=== PATIENT | female | born 1980 | race Caucasian/White ===

== ENCOUNTER 2016-04-24 16:00 | Observation (INO) | payer BC, MEDICAID ==
[~2016-04-24] VITALS: Ht 162.6 cm
--- NOTE | ~2016-04-24 | CON ---
PATIENT'S NAME: DYLAN JAVIER [facility] AGE: 35 Y [address] ROOM: [place] [address] LOCATION: [facility] ADMIT DATE: 04/24/2016 Consultation DISCHARGE DATE: FAMILY PHYSICIAN: Jani Wang MD ATTENDING PHYSICIAN: Jani Wang DATE OF CONSULTATION: 04/24/2016 REASON FOR CONSULTATION: contractions. HISTORY OF PRESENT ILLNESS: The patient is a 35-year-old, -0-0-2, with intrauterine at 31 weeks 3 days, who presented to Dr. Wang today complaining of contractions and back pain. Her was complicated by gestational diabetes, treated with insulin. The patient, given her complaints, was sent over to Labor and Delivery for evaluation. She was found to be 3 cm dilated externally and 1 cm internally, thick and high. She was checked by the nurse again later and found to be again 3 cm externally, 1 cm internally, thick but maybe a little bit , thus my services were requested. PAST MEDICAL HISTORY: None. PAST SURGICAL HISTORY: 1. Appendectomy. 2. Abscess removal of right axilla. OBSTETRICS AND GYNECOLOGY HISTORY: The patient is a -0-0-2. History of 2 term uncomplicated vaginal deliveries, those pregnancies were not complicated by any medical problems. FAMILY HISTORY: Noncontributory. SOCIAL HISTORY: Denies tobacco, alcohol, or drug use. Does have a history of smoking in the past. MEDICATIONS: 1. Insulin. 2. vitamins. 3. Ferrous sulfate. ALLERGIES: PATIENT'S NAME: DYLAN JAVIER [facility] AGE: 35 Y [address] ROOM: [place] [id number] LOCATION: [facility] ADMIT DATE: 04/24/2016 Consultation DISCHARGE DATE: FAMILY PHYSICIAN: Jani Wang MD ATTENDING PHYSICIAN: Jani Wang VANCOMYCIN. REVIEW OF SYSTEMS: Negative except as noted in the HPI. PHYSICAL EXAMINATION: VITAL SIGNS: Blood pressure 115/57, heart rate 67, temperature 98.3, and respiration rate 12. GENERAL: She is alert and oriented, in no acute distress. ABDOMEN: Soft, gravid, nontender. STERILE VAGINAL EXAM: The patient is 3 cm externally but 1 cm internally, thick and high. heart tones, baseline 130 and moderate variability. Positive accelerations, no decelerations. TOCO, contractions every 4 minutes with times of irritability in between and then other times no contractions. ASSESSMENT: The patient is a 35-year-old, -0-0-2, with intrauterine at 31 weeks 3 days with contractions. RECOMMENDATIONS: I recommend that the patient either stay overnight and be reevaluated in the morning; however, given that her cervix has not changed throughout the course of the evening, she would be a candidate to go home. She has a multiparous feeling cervix; however, it is still thick and internally only 1 cm dilated. If the patient dilates up to 2 cm and becomes 80% effaced, then I would recommend tocolysis and Celestone. MD MAYUR RAMIRES/andrey /[id number] d: 04/25/16 0017 t: 04/30/16 1117, CONSULTATION REPORT
--- NOTE | ~2016-04-24 | HP ---
PATIENT'S NAME: DYLAN JAVIER [facility] AGE: 35 Y [address] ROOM: [place] [address] LOCATION: [facility] ADMIT DATE: 04/24/2016 History & Physical DISCHARGE DATE: 04/25/2016 FAMILY PHYSICIAN: Deepthi Wang MD ATTENDING PHYSICIAN: Deepthi Wang DATE OF SERVICE: CHIEF COMPLAINT: Contractions. HISTORY OF PRESENT ILLNESS: The patient is a 35-year-old, -0-0-2 with intrauterine at 31 weeks and 3 days with a history of gestational diabetes and gestational anemia, who presented to clinic with contractions. The patient was brought over to Labor and Delivery for evaluation and placed on the monitor and was noted to have contractions every 2 to 3 minutes. The patient's cervix originally was 1 cm inner os, 3 cm outer os. The patient was given a 1-liter bolus and then IV fluid hydration. The patient denies any chest pain, shortness of breath, fevers, chills, abdominal pain, or any urinary symptoms. PAST MEDICAL HISTORY: 1. Gestational diabetes. 2. Anemia. PAST SURGICAL HISTORY: Appendectomy. SOCIAL HISTORY: The patient denies any current tobacco use, but did use to smoke. FAMILY HISTORY: Significant for cardiovascular disease in maternal grandfather and maternal grandmother, hepatitis C in mother, and thyroid disorder in maternal grandfather. MEDICATIONS: 1. vitamin. 2. Insulin. 3. Iron tablet. ALLERGIES: NO KNOWN MEDICAL ALLERGIES. REVIEW OF SYSTEMS: PATIENT'S NAME: DYLAN JAVIER [facility] AGE: 35 Y [address] ROOM: [place] [address] LOCATION: [facility] ADMIT DATE: 04/24/2016 History & Physical DISCHARGE DATE: 04/25/2016 FAMILY PHYSICIAN: Deepthi Wang MD ATTENDING PHYSICIAN: Deepthi Wang A complete review of systems obtained and pertinent positives and negatives as mentioned in the HPI. OBJECTIVE: VITAL SIGNS: Stable. GENERAL: The patient is alert and oriented. Appears little bit distressed when having contractions. HEENT: Head: Normocephalic, atraumatic. Eyes: Conjunctivae clear. No scleral icterus. Mouth and oropharynx: Mucosa moist and patent. No lesion or exudates. NECK: Supple. No lymphadenopathy or thyromegaly. HEART: Regular rate and rhythm. No rubs, murmurs, or gallops. LUNGS: Clear to auscultation bilaterally. ABDOMEN: Gravid. Tocometer shows contractions every 2 or 3 minutes. heart tones 140s. Cervix, 3 cm outer and 1 cm inner os. EXTREMITIES: No cyanosis, clubbing, or edema. VASCULAR: Pulses 2+ and equal bilaterally. SKIN: No rash or lesions. LYMPHATICS: No lymphadenopathy. NEUROLOGIC: Cranial nerves 2 through 12 grossly intact. LABORATORY DATA: Blood glucose in a.m. was 86. ASSESSMENT: 1. Contractions. 2. Gestational diabetes. 3. Gestational anemia. 4. -0-0-2 with intrauterine at 31 weeks and 3 days. PLAN: OFFENSIVE COORDINATOR was consulted and also will follow and we did fluid hydration. The patient's cervix did not change and her contractions spaced out to irritability. The patient's blood sugars remained controlled during her hospital stay. The following morning, we discharged the patient. We will have her follow up in 2 days in clinic or sooner, if any concerns. Labor precautions were given. The patient is to continue to follow up with diabetes education as directed. If the patient has any concerns prior, she is to contact clinic immediately. DEEPTHI WANG MD PATIENT'S NAME: DYLAN JAVIER [facility] AGE: 35 Y [address] ROOM: [place] [address] LOCATION: [facility] ADMIT DATE: 04/24/2016 History & Physical DISCHARGE DATE: 04/25/2016 FAMILY PHYSICIAN: Deepthi Wang MD ATTENDING PHYSICIAN: Deepthi Wang/andrey /[id number] D: 944 T: HISTORY & PHYSICAL
[2016-04-24] MEDS ORDERED: PRENATAL 1+1)(P1 TAB PO (18:30)
[2016-04-24] MEDS ORDERED: FEOSOL325 MG PO (18:32)
[2016-04-24] MEDS ORDERED: HUMULIN N100 UNIT/2 SUB-Q ×2 (18:57→19:39)
== END 2016-04-25 09:40 | disposition disaster alternative care site (69) ==
LOC: GOBS 16:00
PROVIDERS: ADMIT Family Medicine
DX: O47.03 False labor before 37 completed weeks of gestation, third trimester (principal); O24.419 Gestational diabetes mellitus in pregnancy, unspecified control; O99.013 Anemia complicating pregnancy, third trimester; Z90.49 Acquired absence of other specified parts of digestive tract; Z3A.31 31 weeks gestation of pregnancy; Z79.4 Long term (current) use of insulin; Z79.899 Other long term (current) drug therapy; Z88.1 Allergy status to other antibiotic agents
CPT/HCPCS: G0463; J7120

== ENCOUNTER 2016-05-14 21:16 | Observation (INO) | payer MEDICAID ==
[~2016-05-14] VITALS: Ht 165.1 cm; Wt 108.1 kg
[~2016-05-14 21:16] MED LIST: FEOSOL325 MG PO; HUMULIN N100 UNIT/2 SUB-Q; PRENATAL 1+1)(P1 TAB PO
[2016-05-14] MEDS ORDERED: HUMULIN N100 UNIT/2 SUB-Q (21:53)
[2016-05-14 23:31] LABS: BILIRUBIN URINE NEGATIVE (NEGATIVE); BLOOD URINE NEGATIVE /UL (NEGATIVE); COLOR URINE YELLOW (YELLOW); GLUCOSE URINE 100 mg/dL (NEGATIVE); KETONE URINE 15 mg/dL (NEGATIVE); LEUKOCYTES URINE NEGATIVE /UL (NEGATIVE); NITRITE URINE NEGATIVE (NEGATIVE); PROTEIN URINE 15 mg/dL (NEGATIVE); SPEC GRAVITY URINE 1.025 (1.003-1.035); TURBIDITY URINE CLEAR (CLEAR); UROBILINOGEN URINE NORMAL (NORMAL)
[2016-05-14 23:42] LABS: BACTERIA URINE NEGATIVE (NEGATIVE); EPITHELIAL URINE 0-2 #/HPF (NEGATIVE); MUCUS URINE 1+ (NEGATIVE); RBC URINE NEGATIVE #/HPF (NEGATIVE); WBC URINE 0-2 #/HPF (NEGATIVE)
== END 2016-05-15 02:07 | disposition disaster alternative care site (69) ==
LOC: GOBS 21:16
PROVIDERS: ADMIT Family Medicine
DX: O60.03 Preterm labor without delivery, third trimester (principal); Z3A.34 34 weeks gestation of pregnancy; Z90.49 Acquired absence of other specified parts of digestive tract; Z79.899 Other long term (current) drug therapy; Z87.891 Personal history of nicotine dependence
CPT/HCPCS: G0463

== ENCOUNTER 2016-06-16 18:31 | Inpatient (IN) | payer MEDICAID ==
[~2016-06-16] VITALS: Ht 165.1 cm; Wt 112.9 kg
--- NOTE | ~2016-06-16 | OR ---
PATIENT'S NAME: DYLAN JAVIER [facility] AGE: 35 Y [address] ROOM: [place] [address] LOCATION: [facility] ADMIT DATE: 06/17/2016 OR/Procedure Report DISCHARGE DATE: FAMILY PHYSICIAN: Jani Wang MD ATTENDING PHYSICIAN: Jani Wang SURGEON: Jani Wang MD OSTRICH FARMER: DATE OF PROCEDURE: 06/17/2016 PREOPERATIVE DIAGNOSES: 1. Term-intrauterine 39 weeks and 1 day. 2. Gestational diabetes, insulin dependent. 3. GBS positive. 4. History of chlamydia treated during with test for cure that was negative. POSTOPERATIVE DIAGNOSIS: 1. Term-intrauterine 39 weeks and 1 day. 2. Gestational diabetes, insulin dependent. 3. GBS positive. 4. History of Chlamydia treated during with test for cure that was negative. PROCEDURE PERFORMED: Spontaneous vaginal delivery. ANESTHESIA: Epidural. ESTIMATED BLOOD LOSS: 200 mL. INDICATIONS: The patient is a 35-year-old, -0-0-2, who presents Labor and Delivery for induction of labor. Her has been complicated by Chlamydia infection that was treated and tested for care that was negative, GBS positive, and also measuring for dates and being insulin-dependent gestational diabetic. The patient had a hemoglobin A1c performed earlier this week that was 5.5. The patient was augmented with Cytotec gel and then progressed through labor and did space out, so we started Pitocin and then was found to be complete. FINDINGS: Female infant, score of 8 and 9. Weight 6 pounds 9 ounces. Cord blood was drawn. Intact placenta with 3-vessel cord. No cervical or vaginal lacerations noted and small midline mild 1st degree perineal laceration noted. DESCRIPTION OF PROCEDURE: The patient had a sterile drape placed under her buttocks. head was delivered with expulsive effort over an intact PATIENT'S NAME: DYLAN JAVIER [facility] AGE: 35 Y [address] ROOM: [place] [address] LOCATION: [facility] ADMIT DATE: 06/17/2016 OR/Procedure Report DISCHARGE DATE: FAMILY PHYSICIAN: Jani Wang MD ATTENDING PHYSICIAN: Jani Wang perineum. The was placed on the chest of the mother and the infant was bulb suctioned. Cord was clamped and cut. The infant was handed to the waiting nurse. Cord blood was drawn. The placenta was delivered spontaneously, intact three-vessel cord. The cervix and vagina were inspected and noted to be free of lacerations. There was very mild first-degree midline perineal laceration that was not bleeding. COMPLICATIONS: None. CONDITION: Mother stable in room. PATHOLOGY: None. MD DEVORA CALERO/andrey /[id number] d: 06/17/16 1105 t: 06/25/16 1331, OPERATIVE SUMMARY
[2016-06-16 20:15] LABS: BASOPHIL % 0.3 %; EOSINOPHIL # 0.1 K/uL (0.0-0.5); EOSINOPHIL % 0.6 %; HEMATOCRIT 36.9 % (33.0-46.0); HEMOGLOBIN 12.6 g/dL (11.0-15.0); IMMATURE GRANULOCYTE # 0.2 K/uL (0.0-0.3); IMMATURE GRANULOCYTE % 1.3 %; LYMPHOCYTE # 2.9 K/uL (0.8-4.0); LYMPHOCYTE % 24.8 %; MCH 30.6 pg (27.0-34.0); MCHC 34.1 gm/dL (32.0-36.5); MCV 89.6 fl (83.0-98.0); MONOCYTE % 8.5 %; MPV 10.5 fl (9.4-12.4); NEUTROPHIL # (ANC) 7.6 K/uL (1.8-7.8); NEUTROPHIL % 64.5 %; NRBC % 0 /100WBC (0-0.00); PLATELET COUNT 234 K/uL (150-450); RBC 4.12 M/uL (3.50-5.50); RDW-CV 14.5 % (11.9-14.6); WBC 11.7 K/uL (4.0-11.0)
[2016-06-16] MEDS ORDERED: ACETAMINOPHEN325 MG PO (20:30)
--- NOTE | 2016-06-17 05:00 | NUR ---
VSS. DILITATION:6 EFFACEMENT: 75% STATION:-2. MEMBRANES: INTACT FHT: MODERATE VARIABILITY, MINIMAL AT TIMES, BASELEINE 120. ORDERS TO START PITOCIN AT 0600. NEXT ANTIBIOTIC DUE AT 0800. ACCU CHECKS EVERY 4 HOURS LAST ONE WAS 90. NEXT ONE DUE AT 0800.
[2016-06-18 04:11] LABS: BASOPHIL # 0.1 K/uL (0.0-0.2); BASOPHIL % 0.3 %; EOSINOPHIL # 0.2 K/uL (0.0-0.5); EOSINOPHIL % 0.8 %; HEMATOCRIT 34.4 % (33.0-46.0); HEMOGLOBIN 11.5 g/dL (11.0-15.0); IMMATURE GRANULOCYTE # 0.2 K/uL (0.0-0.3); LYMPHOCYTE # 4.5 K/uL (0.8-4.0); LYMPHOCYTE % 23.5 %; MCH 30.3 pg (27.0-34.0); MCHC 33.4 gm/dL (32.0-36.5); MCV 90.8 fl (83.0-98.0); MONOCYTE # 1.3 K/uL (0.0-1.0); MONOCYTE % 6.5 %; MPV 10.4 fl (9.4-12.4); NEUTROPHIL # (ANC) 13.1 K/uL (1.8-7.8); NEUTROPHIL % 67.9 %; NRBC % 0 /100WBC (0-0.00); PLATELET COUNT 219 K/uL (150-450); RBC 3.79 M/uL (3.50-5.50); RDW-CV 14.6 % (11.9-14.6)
[2016-06-18 04:12] LABS: WBC 19.3 K/uL (4.0-11.0)
--- NOTE | 2016-06-18 05:18 | NUR ---
VSS, FUNDUS FIRM, EVEN, SMALL FLOW. PT REORTS PASSING SOME LARGER CLOTS BUT REPORTS THEY ARE NOT LARGER THAN AN EGG. 2 TYLENOL GIVEN AT 1835 AND MOTRIN GIVEN AT 0051 FOR CRAMPING. NEEDS AN ORDER FOR T-DAP. VIDEOS AND VIDEO SHEET IN ROOM.
--- NOTE | 2016-06-18 17:09 | NUR ---
Significant Event: Follow up: VSS, hbg 11.5, from 12.9, sl duane'd. Kerwin ac & hs, 77,99,106.. Xochilt callahan @ [phone], plans home tomorrow as soon as possible. Needs paternity papers & BC info.
--- NOTE | 2016-06-19 04:35 | NUR ---
Last VS: T:98.2 P:70 R: 16 BP: 141/73 Pain ratin. Last pain med: Motrin Medicated at: 0240 Effective: Yes Breasts: Soft Nipples: Tender/Intact Fundus: Firm and midline Lochia: Small flow Epis/Perineum: Tender Voiding well: Yes Significant event: Worried about baby getting enough colostrum. Pumps and feeds baby colostrum. HS blood sugar was 89.
[2016-06-19] MEDS ORDERED: SURFAK240 MG PO (09:22)
[2016-06-19] MEDS ORDERED: DERMOPLAST SPRA56 GM TOP (09:22)
[2016-06-19] MEDS ORDERED: MOTRIN800 MG PO (09:23)
== END 2016-06-19 10:50 | disposition disaster alternative care site (69) | DRG 774 ==
LOC: GOBS 18:31 → GOBM 18:31 → GOBS 06-17 00:32
PROVIDERS: ADMIT Family Medicine
PROC: 10E0XZZ Delivery of Products of Conception, External Approach (ICD-10-PCS; principal; 2016-06-17)
PROC: 0HQ9XZZ Repair Perineum Skin, External Approach (ICD-10-PCS; 2016-06-17)
DX: O99.824 Streptococcus B carrier state complicating childbirth (principal); O98.32 Other infections with a predominantly sexual mode of transmission complicating childbirth; Z3A.39 39 weeks gestation of pregnancy; Z37.0 Single live birth; O24.424 Gestational diabetes mellitus in childbirth, insulin controlled; O70.0 First degree perineal laceration during delivery; A56.8 Sexually transmitted chlamydial infection of other sites; O09.523 Supervision of elderly multigravida, third trimester
CPT/HCPCS: J1200; J2540; J2590; J3010; J7120

== ENCOUNTER → 2016-06-29 | Outpatient (CLI) | payer MEDICAID ==
[~2016-06-29] MED LIST changes: +ACETAMINOPHEN325 MG PO; +DERMOPLAST SPRA56 GM TOP; +MOTRIN800 MG PO; +SURFAK240 MG PO
== END | disposition disaster alternative care site (69) ==
LOC: GRAD 15:40
DX: O72.2 Delayed and secondary postpartum hemorrhage (principal)

== ENCOUNTER 2016-10-07 13:59 | Emergency (ER) | payer MEDICAID ==
--- NOTE | ~2016-10-07 | ER ---
PATIENT'S NAME: DYLAN JAVIER [facility] AGE: 35 Y [address] ROOM: [place] [address] LOCATION: [facility] ADMIT DATE: 10/07/2016 ER/Outpatient Report DISCHARGE DATE: 10/07/2016 FAMILY PHYSICIAN: Jani Wang MD ATTENDING PHYSICIAN: Dontae Barnes Time of Arrival: 1359 hours. Time of Evaluation: 1405 hours. CHIEF COMPLAINT: Lower abdomen pain secondary to her IUD. HISTORY OF PRESENT ILLNESS: This is a 35-year-old female who presents to the ER. She states she had an IUD placed in July by Dr. Rebecca Sage. She states ever since then she has been having vaginal bleeding from that and cramping. She states cramping is in her lower abdomen, it goes into her back, and she states that this has been going on for the past couple of weeks but feels like it is worse today. She states she has had no other unusual vaginal discharge. No unusual odor. She has had no fever or chills. No troubles with urination. No trouble with bowel movements. She states that she has been trying to find her strings but has not for the past 3 weeks. She states she took the ibuprofen around noon today. She states she is not able to go to the clinic because she is not for sure if she has insurance anymore and she does not have any money upfront to go to the doctor. ALLERGIES: NO KNOWN ALLERGIES. MEDICATIONS: Iron pills. PAST MEDICAL HISTORY: History of MRSA in her axilla, she has irritable bowel syndrome, anemia. PAST SURGERIES: To her right arm pit and appendectomy. SOCIAL HISTORY: Denies smoking, drug, or alcohol use. REVIEW OF SYSTEMS: All systems reviewed were negative with the exception of those discussed in the HPI. PATIENT'S NAME: DYLAN JAVIER [facility] AGE: 35 Y [address] ROOM: [place] [address] LOCATION: ED ADMIT DATE: 10/07/2016 ER/Outpatient Report DISCHARGE DATE: 10/07/2016 FAMILY PHYSICIAN: Jani Wang MD ATTENDING PHYSICIAN: Dontae Barnes PHYSICAL EXAMINATION: VITAL SIGNS: Height 5 feet 4 inches, stated; weight 105 kilograms, taken; blood pressure is 154/85; pulse 74; respirations 16; temperature 98.2 degrees tympanically; saturations 96% on room air. Michaela Coma Score is 15. GENERAL: Alert and obese female, in no acute distress. HEENT: Head, normocephalic. Eyes; pupils are equal and reactive to light. Does display moist mucous membranes. LUNGS: Clear to auscultation bilaterally. HEART: Regular rate and rhythm. ABDOMEN: Soft. She has mild tenderness in her lower abdomen with palpation. No guarding. No rebound tenderness. She has good bowel sounds throughout. No masses were palpated. : Exam was done. Her cervix was visualized. Her cervical os had some scant amount of blood and no strings were visualized. No cervical motion tenderness noted. SKIN: Warm, dry, and intact. LABORATORY DATA AND X-RAYS: CBC; white count is 10.0, hemoglobin is 14.5, platelets 220, ANC is 5.5. Urinalysis was negative for any infection. HCG was negative. Ultrasound was done. The IUD is visualized inside the uterus. She does have ovarian cyst as well. IMPRESSION: 1. Abnormal uterine bleeding secondary to her IUD. 2. Abdominal cramping secondary to her IUD. ASSESSMENT AND PLAN: The patient was upset with me that I did not pull her IUD out. I would recommend that she needs to follow up with Dr. Rebecca Sage who put this in or follow up with [facility]. She needs to continue to use Tylenol or ibuprofen as needed for pain control. Monitor symptoms and follow up as directed. The patient understands and agrees with care. DRE BARTH PA-C FOR DO TAMMY MCHUGH/andrey /[id number] d: t: 10/16/16 1249, OUTPATIENT REPORT
[2016-10-07 14:26] LABS: BILIRUBIN URINE NEGATIVE (NEGATIVE); BLOOD URINE 10 /UL (NEGATIVE); COLOR URINE YELLOW (YELLOW); GLUCOSE URINE NEGATIVE (NEGATIVE); KETONE URINE NEGATIVE (NEGATIVE); LEUKOCYTES URINE NEGATIVE /UL (NEGATIVE); NITRITE URINE NEGATIVE (NEGATIVE); PROTEIN URINE NEGATIVE (NEGATIVE); TURBIDITY URINE CLEAR (CLEAR); UROBILINOGEN URINE NORMAL (NORMAL)
[2016-10-07 14:28] LABS: BASOPHIL # 0.1 K/uL (0.0-0.2); BASOPHIL % 0.7 %; EOSINOPHIL # 0.2 K/uL (0.0-0.5); EOSINOPHIL % 2.3 %; HEMOGLOBIN 14.5 g/dL (11.0-15.0); IMMATURE GRANULOCYTE # 0.1 K/uL (0.0-0.3); IMMATURE GRANULOCYTE % 0.6 %; LYMPHOCYTE # 3.2 K/uL (0.8-4.0); LYMPHOCYTE % 32.2 %; MCH 30.4 pg (27.0-34.0); MCV 88.7 fl (83.0-98.0); MONOCYTE # 0.9 K/uL (0.0-1.0); MONOCYTE % 8.9 %; MPV 9.8 fl (9.4-12.4); NEUTROPHIL # (ANC) 5.5 K/uL (1.8-7.8); NEUTROPHIL % 55.3 %; NRBC % 0 /100WBC (0-0.00); RBC 4.77 M/uL (3.50-5.50)
[2016-10-07 14:29] LABS: HEMATOCRIT 42.3 % (33.0-46.0); MCHC 34.3 gm/dL (32.0-36.5); PLATELET COUNT 320 K/uL (150-450)
[2016-10-07 14:40] LABS: BACTERIA URINE NEGATIVE (NEGATIVE); EPITHELIAL URINE 0-2 #/HPF (NEGATIVE); RBC URINE 0-2 #/HPF (NEGATIVE); WBC URINE NEGATIVE #/HPF (NEGATIVE)
== END 2016-10-07 15:20 | disposition disaster alternative care site (69) ==
LOC: GMED 13:59
PROVIDERS: Physician Assistant Medical
DX: N93.9 Abnormal uterine and vaginal bleeding, unspecified (principal); R10.30 Lower abdominal pain, unspecified; Z97.5 Presence of (intrauterine) contraceptive device; Z90.49 Acquired absence of other specified parts of digestive tract